=== PATIENT | female | born 1980 | race Caucasian/White ===

== ENCOUNTER 2016-09-11 02:08 | Emergency (ER) | payer MEDICAID ==
[~2016-09-11] VITALS: Ht 170.2 cm; Wt 63.5 kg
[2016-09-11 02:20] VITALS: BP 135/81
[2016-09-11] MEDS ORDERED: TDAP [DIPH/PERTUSSIS/TET] 0.5 ML VIAL IM ONE ×2 (02:30→03:00)
[2016-09-11] MEDS ORDERED: SODIUM BICARBONATE 5 ML VIAL TP ONE (02:30)
[2016-09-11] MEDS ORDERED: LIDOCAINE 1%-EPI 1:100,000 20 ML VIAL TP ONE (02:30)
[2016-09-11] MEDS ORDERED: BACI/NEOM/POLY B OINT PKT 1 UDPKT PACKET TP ONE (03:00)
== END 2016-09-11 03:16 | disposition home or self-care (01) ==
LOC: ER 02:08
DX: S61.412A Laceration without foreign body of left hand, initial encounter (principal); F10.20 Alcohol dependence, uncomplicated; W26.0XXA Contact with knife, initial encounter; Y92.89 Other specified places as the place of occurrence of the external cause; Y93.89 Activity, other specified; Y99.8 Other external cause status
CPT/HCPCS: 12001; 90471; 90715; 99283; A4606; A6402; Z7610

== ENCOUNTER 2017-04-17 15:44 | Emergency (ER) | payer MEDICAID ==
[~2017-04-17] VITALS: Ht 172.7 cm; Wt 64.4 kg
[2017-04-17 15:44] VITALS: BP 136/82
== END 2017-04-17 17:54 | disposition home or self-care (01) ==
LOC: ER 15:48
DX: S80.01XA Contusion of right knee, initial encounter (principal); W01.0XXA Fall on same level from slipping, tripping and stumbling without subsequent striking against object, initial encounter; Y93.89 Activity, other specified; Y92.481 Parking lot as the place of occurrence of the external cause; Y99.8 Other external cause status
CPT/HCPCS: 73562; 99284; A4606; Z7610